=== PATIENT | male | born 1950 | race African-American/Black ===

== ENCOUNTER 2016-09-13 21:15 | Emergency (ER) | payer OTHER ==
[~2016-09-13] VITALS: Ht 170.2 cm; Wt 90.7 kg
[~2016-09-13 21:15] MED LIST: ASPI81CH43 PO; CLON0.2D6 TD; HYDR100T9 PO; LOSA100T27 PO; VERA240T17 PO
[2016-09-13 21:39] VITALS: BP 158/86
== END 2016-09-14 00:43 | disposition home or self-care (01) ==
LOC: ER 21:20
DX: M54.5 Low back pain (principal); M79.1 Myalgia; E11.9 Type 2 diabetes mellitus without complications; I10 Essential (primary) hypertension; Z88.8 Allergy status to other drugs, medicaments and biological substances
CPT/HCPCS: 72100; 72125; 74176